=== PATIENT | male | born 1965 | race Caucasian/White ===

== ENCOUNTER 2023-11-23 21:45 | Emergency (ER) | payer BC, SELFPAY ==
[2023-11-23] VITALS (11 sets, daily range): BP systolic 132–150; BP diastolic 77–97; PULSE 57–62; RESP 16; TEMP 35.9; O2SAT 96–98; BMI 33.2
[2023-11-23 22:26] LABS: Chloride* 100 mmol/L (96-114); Potassium* 3.9 mmol/L (3.6-5.1); Sodium* 138 mmol/L (135-149)
[2023-11-23] MEDS: ACTIVATED CHARCOAL 50 GM/240 ML 79.9 GM PO (22:26)
--- NOTE | 2023-11-23 22:27 | ED_ITS ---
HPI - Overdose General Time Seen by Provider: 22:00 Date Seen: 11/23/23 Chief Complaint: Overdose Stated Complaint: overdose Time Seen by Provider: 11/23/23 22:03 Source: patient History of Present Illness HPI Narrative: Patient is a 58-year-old male who presents to the emergency room for evaluation of an accidental overdose. Patient states that he recently got back from vacation and did not fill his pill box. Patient states that he takes his dofetilide twice daily. Tonight he was watching a movie, eating chips, and he took a dose of his medication around 1999. Patients states that around 2099 he got ready for bed and took another dose of his medication. Patient states he realized that he may have accidentally taken a double dose, and call poison control and was told to come in. Patient denies any symptoms. Denies any weakness, dizziness, chest pain, shortness of breath, abdominal pain, nausea, vomiting, diarrhea. Patient did not take any other additional medications, denies any Tylenol, aspirin, ibuprofen, ect. Patient reports that this was accidental because he did not fill his pill box. Patient denies any suicide ideation, homicidal ideation, intent to self-harm. No other complaints. MD complaint: accidental overdose Related Data Home Medications ?Medication ?Instructions ?Recorded ?Confirmed cetirizine 10 mg capsule (Zyrtec) 10 mg PO QDAY PRN 07/26/23 11/23/23 dofetilide 500 mcg capsule 500 mcg PO BID 07/26/23 11/23/23 guaifenesin 600 mg tablet, 600 mg PO BID 07/26/23 11/23/23 extended release 12 hr (Mucinex) sildenafil 25 mg tablet mg PO 07/26/23 07/26/23 Allergies Allergy/AdvReac Type Severity Reaction Status Date / Time Penicillins Allergy Severe Swelling Verified 07/26/23 08:54 of Lip/Tongue/Throat Review of Systems Status of ROS: Reports: 10 or more systems reviewed and unremarkable except as noted in History and below PFSH PFS Social History Smoking Status: Never smoker Exam Narrative: Exam Narrative: General: Afebrile, no acute distress. Appears stated age. HENT: MMM, no oropharyngeal lesions Eyes: PERRL, normal sclerae Neck: non-tender, supple Cardio: regular rate. Regular rhythm. Extremities well perfused Resp: Normal work of breathing, clear breath sounds Chest/Back: no visual signs of trauma, no CVA tenderness Abdomen: no tenderness, non-distended, no rebound, no guarding Neuro: alert and fully oriented. CN II-XII grossly intact. Grossly normal strength and sensation in all extremities. MSK: no deformities. Integumentary/Skin: no rash visualized, normal color Psych: normal affect, normal behavior Const: Vital Signs, click to edit/add: Vital Signs - 24 hr 11/23/23 21:47 11/23/23 22:19 11/23/23 22:32 Temperature 96.7 F L Pulse Rate 62 60 Pulse Rate [Pulse Oximeter] 62 Respiratory Rate 16 16 Blood Pressure 140/81 H 149/97 H Blood Pressure [Le ft Upper Arm] 150/87 H Pulse Oximetry 98 98 98 Oxygen Delivery Me thod Room Air 11/23/23 22:47 11/23/23 23:17 Temperature Pulse Rate 59 L 61 Pulse Rate [Pulse Oximeter] Respiratory Rate 16 16 Blood Pressure 134/85 132/83 Blood Pressure [Le ft Upper Arm] Pulse Oximetry 97 96 Oxygen Delivery Me thod Course Vital Signs Vital signs: Initial Vital Signs Temperature 96.7 F L 11/23/23 21:47 Temperature Source Temporal Artery Scan 11/23/23 21:47 Pulse Rate 62 11/23/23 21:47 Respiratory Rate 16 11/23/23 21:47 Blood Pressure 150/87 H 11/23/23 21:47 Blood Pressure Mean 108 H 11/23/23 21:47 Blood Pressure Position Supine 11/23/23 21:47 Pulse Oximetry 98 11/23/23 21:47 Oxygen Delivery Method Room Air 11/23/23 21:47 Vital Signs Temperature 96.7 F L 11/23/23 21:47 Pulse Rate 62 11/23/23 21:47 Respiratory Rate 16 11/23/23 21:47 Blood Pressure 150/87 H 11/23/23 21:47 Pulse Oximetry 98 11/23/23 21:47 Oxygen Delivery Method Room Air 11/23/23 21:47 Temperature 96.7 F L 11/23/23 21:47 Pulse Rate 61 11/23/23 23:17 Respiratory Rate 16 11/23/23 23:17 Blood Pressure 132/83 11/23/23 23:17 Pulse Oximetry 96 11/23/23 23:17 Oxygen Delivery Method Room Air 11/23/23 21:47 Medications Administered Medications: Discontinued Medications Generic Name Dose Route Start Last Admin Trade Name Isaak PRN Reason Stop Dose Admin Charcoal 79.9 gm 11/23/23 22:05 11/23/23 22:26 Activated Charcoal Suspension 50 Gm/240 Ml PO 11/23/23 22:06 79.9 gm ONCE ONE Administration MDM - Overdose MDM Narrative Medical decision making narrative: 58-year-old male who presents to the emergency department for evaluation of accidental overdose. Upon arrival patient is nontoxic appearing, afebrile, no distress. Patient remains asymptomatic. Discussed with poison Control who recommends treating with 1 gram/kilogram of charcoal, monitor for at least 4 hours post exertion, watch for QT prolongation ventricular dysrhythmias, monitoring heart rate, blood pressure, and obtain basic labs, BMP, magnesium. Patient denies any suicidal ideation, homicidal ideation, intent of self-harm. Patient denies any other medication ingestion. Reviewed initial EKG at 9:55 p.m. which demonstrates sinus bradycardia with first-degree AV block with a ventricular rate of 59 beats per minute, no acute ischemic change, QTC 455. When compared to prior EKG on 09/02/2023. Patient with sinus bradycardia with first-degree AV block, QTC at this time is 401, no other significant change Patient placed on cardiac cath tech pending comprehensive labs performed. Comprehensive labs unremarkable 8.28, hemoglobin 16, point of care troponin negative, no acute metabolic or electrolyte abnormality, magnesium 2, potassium 3.9. Patient was treated with activated charcoal, repeat EKG at 10:47 p.m. demonstrates sinus bradycardia with first-degree AV block, ventricular rate of 57 beats per minute and QTC 463. Patient remains asymptomatic. Repeat EKG at 12:07 a.m. demonstrates sinus bradycardia first-degree AV block with a ventricular rate of 56 beats per minute, QTC 457. We discussed with poison control, will call back in 1 hour, recommend continuing cardiac monitoring, will recheck EKG/QTC in 1 hour and see if need treatment with potassium/magnesium. Patient signed out to overnight provider pending re-evaluation, repeat discussion with poison Control, final disposition. Patient understands and agrees with the plan. Medical Records Attestation: I reviewed the patient's medical records. Lab Data Attestation: I reviewed the patient's lab results. Labs: Lab Results 11/23/23 11/23/23 Range/Units 22:02 22:42 WBC 8.28 (4.50-11.00) K/uL RBC 4.90 (4.30-5.90) m/uL Hgb 16.0 (13.5-17.5) gm/dL Hct 46.4 (37.0-53.0) % MCV 95 (80-100) fL MCH 33 (26-34) pg MCHC 35 (32-36) gm/dL RDW Coeff of Nikolas 12.2 (11.5-15.5) % Plt Count 299 (140-440) K/uL Neut % (Auto) 55.8 (42.0-72.0) % Lymph % (Auto) 28.7 (20-44) % [place] % (Auto) 10.4 (0.0-11.0) % Eos % (Auto) 4.2 (0.0-7.0) % Baso % (Auto) 0.5 (0.0-3.0) % Neut # (Auto) 4.62 (1.7-7.0) K/uL Lymph # (Auto) 2.38 (0.90-2.90) K/uL [place] # (Auto) 0.90 (0.00-0.90) K/UL Eos # (Auto) 0.35 (0.00-0.50) K/uL Baso # (Auto) 0.04 (0.00-0.30) K/uL Abs Immat Gran (auto) 0.03 (0.00-0.30) K/uL Imm/Tot Granulo (auto) 0.4 % Sodium 138 (135-149) mmol/L Potassium 3.9 (3.6-5.1) mmol/L Chloride 100 (96-114) mmol/L Carbon Dioxide 29 (20-32) mmol/L Anion Gap 9 (7-15) mEq/L BUN 18 (7-30) mg/dL Creatinine 1.1 (0.5-1.5) mg/dL Estimated Creat Clear 83.73 Estimated GFR 78 ml/min Glucose 145 H (60-115) mg/dL Calcium 9.2 (8.4-10.6) mg/dL Magnesium 2.0 (1.5-2.6) mg/dL POC Troponin I 0.00 L (0.01-0.04) ng/ml Critical Care Time Critical Care Time Critical Care Time: Yes Attestation: The patient required my highest level preparedness to intervene emergently and I personally spent this critical care time directly and personally managing the patient. This critical care time included: Obtaining a history; Examining the patient; Pulse oximetry; Ordering and reviewing of studies; Arranging urgent treatment with development of a management plan; Evaluation of patients r esponse to treatment; Frequent reassessment discussions with other providers. This critical care time was performed to assess and manage the high probability of imminent life-threatening deterioration that could result in multiorgan failure. It was exclusive of separate billable procedures and treating other patients and teaching time. Total Critical Care Time in Minutes: 60 Discharge Plan Discharge Clinical Impression: Drug overdose Patient Disposition: Home, Self-Care Additional Instructions: Please follow-up with your primary care provider and pack press operator as previously directed. Please continue medications as previously directed. Return to the emergency department if you develop weakness, dizziness, chest pain, shortness of breath, any new or worsening symptoms. It was a pleasure taking care of you today. We hope you feel better soon. Prescriptions: No Action sildenafil 25 mg tablet PO dofetilide 500 mcg capsule 500 mcg PO BID Zyrtec 10 mg capsule 10 mg PO QDAY PRN guaifenesin [Mucinex] 600 mg tablet extended release 12hr 600 mg PO BID Follow Up/Referrals: Tanmay Mohr MD [Primary Care Provider] - Stand Alone Forms: [employer] Info Instructions
[2023-11-23 22:28] LABS: Creatinine* 1.1 mg/dL (0.5-1.5); Est. Creatinine Clearance* 83.73; Estimated Glomerular Filt Rate 78 ml/min
[2023-11-23 22:29] LABS: Anion Gap 9 mEq/L (7-15); Blood Urea Nitrogen* 18 mg/dL (7-30); Calcium* 9.2 mg/dL (8.4-10.6); Carbon Dioxide* 29 mmol/L (20-32); Glucose* 145 mg/dL (60-115)
--- OUTSIDE RECORDS SUMMARY | 2023-11-23 22:39 | XMS_ITS | Referral Summary ---
Author Organization [facility] Address [address] [place] [id number] Care Team Providers Care Manager Pediatric Name Role Phone No Ref-Primary, Physician Primary Care Provider Allergies Active Allergy Reactions Criticality Noted Date Comments Penicillin G 05/18/2021 Medications Medication Sig Dispensed Refills Start Date End Date Status apixaban ANTICOAGULANT (ELIQUIS) 2.5 MG tablet Take 2.5 mg by mouth 2 times daily Active Active Problems No known active problems Social History Tobacco Use Types Packs/Day Years Used Date Smoking Tobacco: Never Smokeless Tobacco: Never Adolescent Education Answer Date Record ed Getting School Help Needed Not on file 02/13 Sex and Gender Information Value Date Recorded Sex Assigned at Not on file Gender Identity Not on file Sexual Orientation Not on file Last Filed Vital Signs Vital Sign Reading Time Taken Comments Blood Pressure 104/80 05/18/2021 3:13 PM MEDICAL RECORD TECHNICIAN Pulse 53 05/18/2021 3:13 PM MEDICAL RECORD TECHNICIAN Temperature 36.6 ??C (97.8 ??F) 05/18/2021 3:13 PM CS T Respiratory Rate - - Oxygen Saturation 98% 05/18/2021 3:13 PM MEDICAL RECORD TECHNICIAN Inhaled Oxygen Concentration - - Weight - - Height - - Body Mass Index - - Plan of Treatment Not on file Care Teams Manager Pediatric Relationship Specialty Start Date End Date No Ref-Primary, Physician PCP - General 05/18/21
--- OUTSIDE RECORDS SUMMARY | 2023-11-23 22:39 | XMS_ITS | Clinical Summary ---
Author Organization [facility] Address [place], [place] [address] Care Team Providers Care Quality Analyst Name Role Phone Ramy Rosas MD Unavailable [phone] Kolton Delcid DO Primary Care Provider [phone] Allergies Active Allergy Reactions Criticality Noted Date Comments Flecainide Peripheral Neuropathy 11/06/2021 Penicillins Hives,Throat Swelling/Closing High 08/17 Shrimp Rash 10/09/2019 Medications Medication Sig Dispensed Refills Start Date End Date Status cetirizine (ZYRTEC) 10 mg tablet Take 10 mg by mouth once daily. Active ibuprofen (AdviL) 200 mg tablet Take 400-800 mg by mouth every 6 hours if needed. Active aspirin (ECOTRIN) 81 mg enteric coated tabletIndications:Par oxysmal atrial fibrillation (HC) Take 1 Tablet (81 mg) by mouth once daily with a meal. 07/15/2023 Active dofetilide (TIKOSYN) 500 mcg capsuleIndications:Pa roxysmal atrial fibrillation (HC),Atypical atrial flutter (HC) Take 1 Capsule (500 mcg) by mouth every 12 hours. Pt is due for labs/ekg in November 2023 180 Capsule 09/10/2023 Active Active Problems Problem Noted Date Diagnosed Date Atypical atrial flutter 09/19/2022 Paroxysmal atrial fibrillation 11/05/2021 s/p right knee arthroscopic debridement and medial menisectomy, DOS: 10/11/[address] Estes 10/23/2019 Right knee pain 07/21/2019 Complex tear of medial meniscus of right knee Status post ablation of atrial fibrillation 12/23 EXAMINATION, ROUTINE MEDICAL 03/16/2000 Resolved Problems Problem Noted Date Diagnosed Date Resolved Date Nicotine Dependence 06/15/19 17 Alcohol Abuse. 06/15/2016 Encounters Date Type Department Care Team Description 11/23/2023 Telephone [facility] [address] [phone] Shena Cruz RN Medication Management (Tikosyn/) 10/21/2023 3:30 PM CDT Office Visit [facility] [address] [phone] Ramy Rosas MD CV Electrophysiology Est (f/u DX PAF /Tikosyn labs/ekg completed August 2023 //PCP: Kolton Delcid DO) 10/21/2023 Travel 09/10/2023 Nurse Triage [facility] [address] [phone] Heidi Barragan RN Results (Patient was calling for results and Tikosyn refill) 09/02/2023 4:00 PM CDT Nurse/Clinic Staff Only [facility] [address] [place] [address] Cardiovascular Diagnostic Testing (EKG PER ITALIA BARLOW NP ) 09/02/2023 3:45 PM CDT Orders Only [facility] [address] [place] [address] Lab, [facility] 09/02/2023 Travel 08/31/2023 Refill [facility] [address] [phone] Ramy Rosas MD Refill Request (Dofetilide) from Last 3 Months Immunizations Name Administration Dates Next Due Influenza A (H1N1), Inactivated 06/05/2009 Influenza A (H1N1), Live Intranasal 06/07/2009 Influenza Virus, Unspecified 02/22/2017 Influenza, IIV3 (Age >=3 years) 02/02/20 12,02/03/2011,04/07/2009,2004 Influenza, IIV4 (=>6mos) MDV 03/08/2020, 03/07/2019,02/10/2017,2015 Influenza, Injectable, Mdck, Quadrivalent, W/preservative 03/10/2023,03/03/2022,03/05/2021 Td (Age >=7 Years) 09/22/1999 Tdap 07/15/2023,12/24/2012,06/12/2009 Zoster (Shingrix-RZV, recombinant) 06/23/2022 Social History Tobacco Use Types Packs/Day Years Used Date Smoking Tobacco: Former Cigarettes 2 25 0 07/14/1989 - 07/14/2014 Smokeless Tobacco: Former Quit: 07/14/2014 Tobacco Cessation:Counseling Given: Yes Alcohol Use Standard Drinks/Week Comments Not Currently 0 (1 standard drink = 0.6 oz pur e alcohol) rare PHQ-2 Answer Date Recorded PHQ-2 TOTAL SCORE 0 07/15/2023 Social Connections Answer Date Recorded Frequency of Communication with Friends and Fami ly Not on file 06/24/2023 Financial Resource Strain Answer Date R ecorded Difficulty of Paying Living Expenses 3 06/23/2022 Difficulty of Paying Living Expenses Not on file 06/23/2022 Food Insecurity Answer Date Recorded Worried About Running Out of Food in the Last Ye ar 1 06/23/2022 Transportation Needs Answer Date Record ed Lack of Transportation (Medical) 1 06/23/2022 Housing Stability Answer Date Recorded Unable to Pay for Housing in the Last Year 1 06/23/2022 Sex and Gender Information Value Date Recorded Sex Assigned at Not on file Gender Identity Not on file Sexual Orientation Not on file Obstetrics History Last Filed Vital Signs Vital Sign Reading Time Taken Comments Blood Pressure 132/80 10/21/2023 3:28 PM CDT Pulse 57 10/21/2023 3:28 PM CDT Temperature 36.9 ??C (98.5 ??F) 09/21/2022 8:00 AM CD T Respiratory Rate 16 09/21/2022 8:00 AM CDT Oxygen Saturation 95% 10/21/2023 3:28 PM CDT Inhaled Oxygen Concentration - - Weight 115.2 kg (254 lb) 10/21/2023 3:28 PM CDT Height 185.4 cm (6' 1) 10/21/2023 3:28 PM CDT Body Mass Index 33.51 10/21/2023 3:28 PM CDT Plan of Treatment Health Maintenance Due Date Last Done Comments Zoster (shingles) series for age 50+ (2 of 2) 08/18/2022 06/23/2022 COVID-19 vaccine series ( season) 2023 05/02/2021, 09/06/2020, 08/08/2020 Influenza for age 50-64 01/23/2024 03/10/20 23, 03/03/2022, 03/05/2021, Additional history exists Low Dose CT (for lung CA) age 50-80 07/02/2024 07/02/2023, 07/01/2022 Depression screening for age 12+ 07/15/2024 07/15/2023, 06/23/2022, 01/30/2021, Additional history exists BMI (ht and wt on same day) for age 18+ 10/20/2024 10/21/2023, 07/15/2023, 12/07/2022, Additional history exists Fecal testing sDNA-FIT (Cologuard) for age 45-75 06/18/2025 06/18/2022 Lipids for age 45-75 07/15/2028 07/15/2023, 06/23/2022, 01/30/2021, Additional history exists Tetanus booster 07/15/2033 07/15/2023, 07/2012, 06/12/2009, Additional history exists HIV for age 15-65 Completed 06/23/2022 Hepatitis C screening for age 18-79 Completed 06/23/2022 Tdap Completed 07/15/2023, 0 07/2012, 06/12/2009 Pneumococcal series for age 6-64 Aged Out No longer eligible based on patient's age to complete this topic Procedures Procedure Name Priority Date/Time Associated Diagnosis Comments EKG 12 LEAD Routine 09/03/2023 9:14 AM CDT Paroxysmal atrial fibrillation (HC) POTASSIUM Routine 09/02/2023 3:50 PM CDT Status post ablation of atrial fibrillation Paroxysmal atrial fibrillation (HC) Atypical atrial flutter (HC) CREATININE Routine 09/02/2023 3:50 PM CDT Status post ablation of atrial fibrillation Paroxysmal atrial fibrillation (HC) Atypical atrial flutter (HC) BUN Routine 09/02/2023 3:50 PM CDT Status post ablation of atrial fibrillation Paroxysmal atrial fibrillation (HC) Atypical atrial flutter (HC) LIPID PANEL W REFLEX MEASURED LDL Routine 07/15/2023 4:48 PM BRASS BUFFER Annual physical exam CT CHEST SCREENING LOW DOSE WO CONTRAST Routine 07/02/2023 3:57 PM BRASS BUFFER Encounter for screening for lung cancer Former smoker LC HIV-1/O/2, 4TH GENERATION Routine 06/23/2022 8:29 AM BRASS BUFFER Screening for HIV (human immunodeficiency virus) LC HCV ANTIBODY RFX TO QUANT PCR Routine 06/23/2022 8:29 AM BRASS BUFFER Need for hepatitis C screening test SDNA-FIT EXTERNAL (COLOGUARD) Routine 06/18/2022 8:00 AM BRASS BUFFER Screening for colon cancer from Last 3 Months or Most Recently Relevant to Health Maintenance Results * EKG 12 LEAD (09/03/2023 9:14 AM CDT) Italia Barlow NP EKG ORD * BUN (09/02/2023 3:50 PM CDT) BUN 20 6 - 20 mg/dL 09/03/2023 1:54 PM CDT [facility] Blood BLOOD SPECIMEN / Unknown Venipuncture / Unknown 09/02/2023 3:50 PM CDT 09/02/2023 3:51 PM CDT Kristina Hare NP CHEMISTRY [facility] [address] [place] [address], [place] * POTASSIUM (09/02/2023 3:50 PM CDT) POTASSIUM 4.6 3.5 - 5.1 mmol/L 09/03/2023 1:54 PM CDT [facility] Blood BLOOD SPECIMEN / Unknown Venipuncture / Unknown 09/02/2023 3:50 PM CDT 09/02/2023 3:51 PM CDT Kristian Hare DIRECTOR OF EXTENSION WORK CHEMISTRY Performing Organization Address [facility] Co de Phone Number [facility] [address] [place] [address], [place] * (ABNORMAL) CREATININE (09/02/2023 3:50 PM CDT) Pathologist [facility] eGFR 89(L) >90 mL/min/1.7 3m2 09/03/2023 1:54 PM CDT [facility] Comment:As of 2021, eG FR is calculated by the CKD-EPI creatinine equation without race adjustment. ??eGFR can be influenced by muscle mass, exercise, and diet. ??The reported eGFR is an estimation only and is only applicable if the renal function is stable. CREATININE 0.99 0.70 - 1.20 mg/dL 09/03/2023 1:54 PM CDT [facility] Blood BLOOD SPECIMEN / Unknown Venipuncture / Unknown 09/02/2023 3:50 PM CDT 09/02/2023 3:51 PM CDT Kristina Hare DIRECTOR OF EXTENSION WORK CHEMISTRY [facility] [address] [place] [address], [place] * LIPID PANEL W REFLEX MEASURED LDL (07/15/2023 4:48 PM BRASS BUFFER) CHOLESTEROL,TOTAL 173 100 - 199 mg/dL 07/16/2023 2:14 PM BRASS BUFFER [facility] Comment: Cholesterol, Total Reference Ranges Desirable <200 mg/dL Borderline 200-239 mg/dL High >=240 mg/dL TRIGLYCERIDES 105 <150 mg/dL 07/16/2023 2:14 PM BRASS BUFFER [facility] HDL CHOLESTEROL 62 >40 mg/dL 2:14 PM BRASS BUFFER [facility] NON-HDL CHOLESTEROL 111 <145 mg/dl 07/16/2023 2:14 PM BRASS BUFFER [facility] CHOL/HDL RATIO 2.79 <4.50 07/16/2023 2:14 PM BRASS BUFFER [facility] LDL CHOLESTEROL 90 <=130 mg/dL 07/16/2023 2:14 PM BRASS BUFFER [facility] VLDL CHOLESTEROL 21 <=30 mg/dL 07/16/2023 2:14 PM BRASS BUFFER [facility] PROVIDER ORDERED STATUS RANDOM 07/16/2023 2:14 PM BRASS BUFFER [facility] Blood BLOOD SPECIMEN / Unknown Venipuncture / Unknown 07/15/2023 4:48 PM BRASS BUFFER 07/15/2023 4:49 PM BRASS BUFFER Kolton Delcid DO [facility]MI[facility] [address] [place] [address], * CT CHEST SCREENING LOW DOSE WO CONTRAST (07/02/2023 3:57 PM BRASS BUFFER) Anatomical Region Laterality Modality Computed Tomogra phy Impressions 07/03/2023 10:35 AM BRASS BUFFER Negative for lung cancer screening purposes. LUNG-RADS CATEGORY: 2: Benign. RADIOLOGIST RECOMMENDATION: Continue annual screening with low-dose CT chest in 12 months. Please note that all CT scans at this facility use dose modulation, iterative reconstruction and/or weight-based dosing when appropriate to reduce radiation dose to as low as reasonably achievable. ?? Dictated by: Mike Samaniego MD @07/02/2023 4:28:38 PM/bhe Narrative 07/03/2023 10:35 AM BRASS BUFFER For Patients: As a result of the Century Cures Act, medical imaging exams and procedure reports are released immediately into your electronic medical record. ??You may view this report before your referring provider. ?? If you have questions, please contact your health care provider. CT CHEST SCREENING LOW-DOSE WITHOUT CONTRAST 07/02/2023 INDICATION: Lung cancer screening. History of smoking. High risk patient with greater than 20 pack-year smoking history. TECHNIQUE: Low-dose lung cancer screening non-contrast CT chest. Dose reduction techniques were used. COMPARISON: 07/01/2022. FINDINGS: NODULES: Stable 3.6 millimeter nodule LEFT upper lobe, 5/42. LUNGS AND PLEURA: Mild paraseptal emphysematous changes. MEDIASTINUM: Normal. CORONARY ARTERY CALCIFICATION: None. LIMITED UPPER ABDOMEN: Normal. MUSCULOSKELETAL: Normal. Kolton Delcid DO CT * LC HCV ANTIBODY RFX TO QUANT PCR (06/23/2022 8:29 AM BRASS BUFFER) Pathologist [facility] HCV Ab <0.1 0.0 - 0.9 s/co ratio 06/25/2022 10:06 PM BRASS BUFFER [facility] Blood BLOOD SPECIMEN / Unknown Venipuncture / Unknown 06/23/2022 8:29 AM BRASS BUFFER 06/23/2022 8:29 AM BRASS BUFFER Narrative [facility] - 06/25/2022 10:06 PM BRASS BUFFER Performed at: ??[address] ??[id number] Calender Inspector: Aron Tan MD, Phone: ??[phone] Kolton Delcid DO LABORATORY [facility]) [address] [place] [address], * LC HIV-1/O/2, 4TH GENERATION (06/23/2022 8:29 AM BRASS BUFFER) Pathologist [facility] HIV Scr 4th Gen Non Reactive Non Reactive 06/25/2022 10:06 PM BRASS BUFFER [facility] Comment: HIV Negative HIV-1/HIV-2 antibodies and HIV-1 p24 antigen were NOT detected. There is no laboratory evidence of HIV infection. Blood BLOOD SPECIMEN / Unknown Venipuncture / Unknown 06/23/2022 8:29 AM BRASS BUFFER 06/23/2022 8:29 AM BRASS BUFFER Narrative [facility] - 06/25/2022 10:06 PM BRASS BUFFER Performed at: ??[address] ??[id number] Calender Inspector: Aron Tan MD, Phone: ??[phone] Kolton Delcid DO LABORATORY [facility] ([facility]) [address] [place] [address], * SDNA-FIT EXTERNAL (COLOGUARD) (06/18/2022 8:00 AM BRASS BUFFER) NONINV COLON CA DNA+OCC BLD SCRN STL-IMP Negative Negative 06/24/2022 6:58 PM BRASS BUFFER [facility] (CLIA #:[id number]) Comment: NEGATIVE TEST RESULT. A negative Cologuard result indicates a low likelihood that a colorectal cancer (CRC) or advanced adenoma (adenomatous polyps with more advanced pre-malignant features) ??is present. The chance that a person with a negative Cologuard test has a colorectal cancer is less than 1 in 1500 (negative predictive value >99.9%) or has an ??advanced adenoma is less than ??5.3% (negative predictive value 94.7%). These data are based on a prospective cross-sectional study of 10,000 individuals at average risk for colorectal cancer who were screened with both Cologuard and colonoscopy. (Meredith Lopez al, N Engl J Med 2014;370(14):1286- 1297) The normal value (reference range) for this assay is negative. COLOGUARD RE-SCREENING RECOMMENDATION: Periodic colorectal cancer screening is an important part of preventive healthcare for asymptomatic individuals at average risk for colorectal cancer. ??Following a negative Cologuard result, the [place] Cancer Society and U.S. Multi-Society Task Force screening guidelines recommend a Cologuard re-screening interval of 3 years. References: [place] Cancer Society Guideline for Colorectal Cancer Screening: https://www.cancer.org/cancer/jwcrk-ldxtit-saiaez/czmqyvifd-fjlfjtidp-aclffev/ac s-rec ommendations.html.; John DK, Lindsay DAMIAN, Tari SANTACRUZ, Colorectal Cancer Screening: Recommendations for Physicians and Patients from the U.S. Multi-Society Task Force on Colorectal Cancer Screening , Am J Gastroenterology 2017; 112:7239-5646. TEST DESCRIPTION: Composite algorithmic analysis of stool DNA-biomarkers with hemoglobin immunoassay. ?? Quantitative values of individual biomarkers are not reportable and are not associated with individual biomarker result reference ranges. Cologuard is intended for colorectal cancer screening of adults of either sex, 45 years or older, who are at average-risk for colorectal cancer (CRC). Cologuard has been approved for use by the U.S. FDA. The performance of Cologuard was established in a cross sectional study of average-risk adults aged 50-84. Cologuard performance in patients ages 45 to 49 years was estimated by sub-group analysis of near-age groups. Colonoscopies performed for a positive result may find as the most clinically significant lesion: colorectal cancer [4.0%], advanced adenoma (including sessile serrated polyps greater than or equal to 1cm diameter) [20%] or non- advanced adenoma [31%]; or no colorectal neoplasia [45%]. These estimates are derived from a prospective cross-sectional screening study of 10,000 individuals at average risk for colorectal cancer who were screened with both Cologuard and colonoscopy. (Meredith Lopez al, N Engl J Med 2014;370(14):9256-2998.) Cologuard may produce a false negative or false positive result (no colorectal cancer or precancerous polyp present at colonoscopy follow up). A negative Cologuard test result does not guarantee the absence of CRC or advanced adenoma (pre-cancer). The current Cologuard screening interval is every 3 years. ([place] Cancer Society and U.S. Multi-Society Task Force). Cologuard performance data in a 10,000 patient pivotal study using colonoscopy as the reference method can be accessed at the following location: www.[employer]/results. Additional description of the Cologuard test process, warnings and precautions can be found at www.cologuard.com. Stool specimen (specimen) (Rectum) 06/18/2022 8:00 AM BRASS BUFFER 06/19/2022 10:48 AM BRASS BUFFER Kolton Delcid DO URINE [facility] (CLIA #:[id number]) [address] [address] [address], from Last 3 Months or Most Recently Relevant to Health Maintenance Advance Directives * Full Code (Latest Code Status on File) Date Activated Date Inactivated Comments 09/18/2022 1:32 PM 09/21/2022 2:06 PM Question Answer Comments Code Status Discussion: Reviewed Preferences * Full Code Date Activated Date Inactivated Comments 09/15/2022 8:11 AM 09/15/2022 12:05 PM Question Answer Comments Code Status Discussion: Reviewed Preferences * Full Code Date Activated Date Inactivated Comments 02/20/2022 10:13 AM 02/20/2022 8:28 PM Question Answer Comments Code Status Discussion: Other (specify in commen ts): * Full Code Date Activated Date Inactivated Comments 08/05/2021 9:42 AM 08/05/2021 6:48 PM Question Answer Comments Code Status Discussion: Other (specify in commen ts): * Full Code Date Activated Date Inactivated Comments 10/11/2019 9:52 AM 10/11/2019 5:30 PM Care Teams Quality Analyst Relationship Specialty Start Date End Date [place] [address] PCP - General Family Practice 07/15/21 Ramy Rosas MD [address] [place] [address] Cardiovascular Disease 08/02/15
--- OUTSIDE RECORDS SUMMARY | 2023-11-23 22:39 | XMS_ITS | Clinical Summary ---
Author Organization [facility] Address [address] [place] [address] Care Team Providers Care Spring Tester Name Role Phone No Ref-Primary, Physician Primary [...] Comments Blood Pressure 104/80 05/18/2021 3:13 PM LITHOGRAPH OPERATOR Pulse 53 05/18/2021 3:13 PM LITHOGRAPH OPERATOR Temperature 36.6 ??C (97.8 ??F) 05/18/2021 3:13 PM CS T Respiratory Rate - - Oxygen Saturation 98% 05/18/2021 3:13 PM LITHOGRAPH OPERATOR Inhaled Oxygen Concentration - - Weight - - Height - - Body Mass Index - - Plan of Treatment Health Maintenance Due Date Last Done Comments ADVANCE CARE PLANNING 1966 ANNUAL REVIEW OF HM ORDERS 1966 CT COLONOGRAPHY 1966 FIT 1966 FLEX SIG 1966 GLUCOSE 1966 sDNA (Cologuard) 1966 COLONOSCOPY 1976 COLORECTAL CANCER SCREENING 1976 HIV SCREENING 1981 HEPATITIS C SCREENING 1984 HEPATITIS B IMMUNIZATION (1 of 3 - 19+ 3-dose series) 1985 LIPID 2006 ZOSTER IMMUNIZATION (1 of 2) 2016 YEARLY PREVENTIVE VISIT 01/30/2022 01/30/2021 DTAP/TDAP/TD IMMUNIZATION (3 - Td or Tdap) 12/24/2022 12/24/2012, 06/12/2009 COVID-19 Vaccine (4 - season) 2023 05/02/2021, 09/06/2020, 08/08/2020 PHQ-2 (once per calendar year) 2023 INFLUENZA VACCINE (#1) 2024 0, 03/07/2019, 02/22/2017, Additional history exists HPV IMMUNIZATION Aged Out No longer e ligible based on patient's age to complete this topic IPV IMMUNIZATION Aged Out No longer e ligible based on patient's age to complete this topic MENINGITIS IMMUNIZATION Aged Out No l onger eligible based on patient's age to complete this topic Pneumococcal Vaccine: Pediatrics (0 to 5 Years) and At-Risk Patients (6 to 64 Years) Aged Out No longer eligible based on patient's age to complete this topic RSV MONOCLONAL ANTIBODY Aged Out No l onger eligible based on patient's age to complete this topic Care Teams Spring Tester Relationship Specialty Start Date End Date No Ref-Primary, Physician PCP - General 05/18/21
[2023-11-23 22:58] LABS: Basophils Absolute Auto 0.04 K/uL (0.00-0.30); Basophils Percent Auto 0.5 % (0.0-3.0); Eosinophils Absolute Auto 0.35 K/uL (0.00-0.50); Eosinophils Percent Auto 4.2 % (0.0-7.0); Hematocrit 46.4 % (37.0-53.0); Immature Granulocytes Abs Auto 0.03 K/uL (0.00-0.30); Immature Granulocytes Pct Auto 0.4 %; Lymphocytes Absolute Auto 2.38 K/uL (0.90-2.90); Lymphocytes Percent Auto 28.7 % (20-44); Mean Corpuscular HGB Conc 35 gm/dL (32-36); Mean Corpuscular Hemoglobin 33 pg (26-34); Mean Corpuscular Volume 95 fL (80-100); Monocytes Percent Auto 10.4 % (0.0-11.0); Neutrophils Absolute Auto 4.62 K/uL (1.7-7.0); Neutrophils Percent Auto 55.8 % (42.0-72.0); Platelet Count* 299 K/uL (140-440); RDW Coefficient of Variation % 12.2 % (11.5-15.5); White Blood Count* 8.28 K/uL (4.50-11.00)
[2023-11-23 22:59] LABS: Slide Review Reflex No
[2023-11-24] VITALS (10 sets, daily range): BP systolic 117–133; BP diastolic 71–80; PULSE 59–63; O2SAT 83–96
== END 2023-11-24 01:31 | disposition home or self-care (01) ==
PROVIDERS: Emergency Provider Emergency Medicine; PCP Family Medicine
DX: T46.2X1A Poisoning by other antidysrhythmic drugs, accidental (unintentional), initial encounter (principal)
CPT/HCPCS: 36415; 80048; 83735; 84484; 85025; 93005; 99285; 99291; A9270